=== PATIENT | male | born 1955 | race Caucasian/White ===

== ENCOUNTER 2017-08-08 07:00 | Day surgery (SDC) | payer BC ==
[2017-08-08] MEDS ORDERED: Dextrose 5%-Lactated Ringers 1,000 ML IV SCH (07:30)
[2017-08-08] MEDS ORDERED: Propofol 200 MG/20 ML SDV ONE (07:55)
[2017-08-08] MEDS ORDERED: Midazolam 1 MG/ML 2 ML SDV ONE (07:56)
[2017-08-08] MEDS ORDERED: fentaNYL 100 MCG/2 ML SDV ONE (07:56)
[2017-08-08] MEDS ORDERED: Glycopyrrolate 0.2 MG/ML 2 ML SDV IVPUSH ONE (08:15)
[2017-08-08] MEDS ORDERED: Famotidine 20 MG/2 ML SDV IVPUSH ONE (08:53)
[2017-08-08 09:58] VITALS: BP 118/76
--- NOTE | 2017-08-13 11:59 | OR ---
DATE OF PROCEDURE: 08/08/2017 PREOPERATIVE DIAGNOSIS: Dysphagia referable to cervical esophagus. POSTOPERATIVE DIAGNOSES: 1. Ulcerative gastroesophageal reflux disease. 2. Mild antral gastritis. OPERATIVE PROCEDURES: Esophagogastroduodenoscopy with: 1. Biopsies of antrum for CLOtest. 2. Biopsies of esophagogastric junction for histologic evaluation. ANESTHESIA: IV sedation. INDICATION FOR PROCEDURE: This is a 62-year-old male presenting with history of some recently worsening dysphagia referable to cervical area as well as sense of irritation in that region. Plan is to proceed with upper GI endoscopy with biopsies and/or dilation if indicated. Potential risks of the procedure including bleeding and perforation were discussed, and the patient wishes to proceed. DETAILS OF PROCEDURE: The patient was taken to the operating room and placed in a left lateral decubitus position. IV sedation was administered, after which the upper GI endoscope was passed orally through the length of the esophagus and into the stomach with retroflexion view of the fundus, and thereafter through the pyloric channel and into the junction of the third and fourth portions of the duodenum. Findings included some mild redness of the hypopharynx and laryngeal area. The scope was then passed through the upper esophageal sphincter and esophageal body which were unremarkable. At the EG junction, the patient was noted to have a small hiatal hernia and quite active gastroesophageal reflux disease. There were 2 areas of ulceration, one of which was over 2 cm in length. These were covered with fibrinous exudate and were surrounded by areas of intense redness and friability of the mucosa. There was no plaquing or gross evidence of neoplasia. Within the stomach, retroflexion view confirmed the small hiatal hernia. Within the antrum, there was some mild redness in the pre-pyloric area, but without erosions or ulcers. The pyloric channel and duodenum were unremarkable. At this point, biopsies were obtained from the antrum and sent for CLOtest for H. pylori. Multiple biopsies were then obtained from the esophagogastric junction, focusing on the areas of inflammation and ulceration. Minimal bleeding from the biopsy sites was seen and the procedure then concluded. The patient in the past has been fairly intolerant to proton pump inhibitors, and we will give him Pepcid 40 mg IV in the recovery room and then begin Zantac 30 mg daily. We will see him back in 10 days for a recheck to discuss long-term treatment options. The patient may be a candidate for an antireflux procedure given his otherwise fairly good health and relatively young age. Joe Kelley MD /[id number]
== END 2017-08-08 10:00 | disposition home or self-care (01) ==
LOC: JP.SDS 07:00
PROVIDERS: ATTEND Surgery
DX: K25.9 Gastric ulcer, unspecified as acute or chronic, without hemorrhage or perforation (principal); K44.9 Diaphragmatic hernia without obstruction or gangrene; K21.9 Gastro-esophageal reflux disease without esophagitis
CPT/HCPCS: 43239; 87081; 88305; 88312; J2250; J2704; J3010; J7042; J3490; S0028

== ENCOUNTER 2019-07-23 06:03 | Day surgery (SDC) | payer MEDICARE ==
[2019-07-23] MEDS ORDERED: Dextrose 5%-Lactated Ringers 1,000 ML IV SCH (06:45)
[2019-07-23] MEDS ORDERED: Meropenem 500 MG in Sodium Chloride 0.9% 50 ML IV ONE (06:45)
[2019-07-23] MEDS ORDERED: Propofol 200 MG/20 ML SDV ONE (07:10)
[2019-07-23] MEDS ORDERED: Midazolam 1 MG/ML 2 ML SDV ONE (07:10)
[2019-07-23] MEDS ORDERED: fentaNYL 100 MCG/2 ML SDV ONE (07:10)
[2019-07-23 09:31] VITALS: BP 135/85; PULSE 68
--- NOTE | 2019-08-02 12:29 | OR ---
DATE OF PROCEDURE: 07/23/2019 SURGEON: Joe Kelley MD PREOPERATIVE DIAGNOSIS: History of colon polyps. POSTOPERATIVE DIAGNOSIS: Normal screening colonoscopy with no evident recurrent polyps. PROCEDURE PERFORMED: Screening colonoscopy. ANESTHESIA: IV sedation. INDICATION FOR PROCEDURE: A 64-year-old presenting with history of previous polyp removal from the colon. Plan is to proceed with a flexible colonoscopy with biopsies and/or polypectomy as indicated. Potential risks including bleeding and perforation were discussed, and the patient wishes to proceed. DETAILS OF PROCEDURE: The patient was taken to the operating room, placed in a left lateral decubitus position. IV sedation was administered after which the initial digital rectal exam was performed and was unremarkable. Colonoscope was then passed into the rectum with retroflexion revealing uncomplicated hemorrhoidal columns. The scope was then passed to the level of the cecum. The prep was quite good with only a small amount of liquid stool being present. To that level, no abnormalities were noted, specifically no polyp formation or other signs of neoplasia, and no diverticular disease or colitis were noted. The scope was withdrawn with the above findings reconfirmed, procedure concluded. The patient was taken to the recovery room in satisfactory condition. Given the history of colon polyps, he should have a repeat colonoscopy in 5 years. Joe Kelley MD /[id number]
== END 2019-07-23 09:34 | disposition home or self-care (01) ==
LOC: JP.SDS 06:03
PROVIDERS: ATTEND Surgery
DX: Z12.11 Encounter for screening for malignant neoplasm of colon (principal); K64.9 Unspecified hemorrhoids; K21.9 Gastro-esophageal reflux disease without esophagitis; Z86.010 Personal history of colon polyps
CPT/HCPCS: G0121; J2185; J2250; J2704; J3010; J7042; J7050

== ENCOUNTER 2021-02-09 06:19 | Day surgery (SDC) | payer MEDICARE ==
[2021-02-09] MEDS ORDERED: Sodium Chloride 0.9% 1,000 ML IV SCH (07:00)
[2021-02-09] MEDS ORDERED: Midazolam 1 MG/ML 2 ML SDV ONE (07:06)
[2021-02-09] MEDS ORDERED: Propofol 200 MG/20 ML SDV ONE (07:06)
[2021-02-09] MEDS ORDERED: fentaNYL 100 MCG/2 ML SDV ONE (07:06)
[2021-02-09 08:48] VITALS: BP 136/83; PULSE 71
--- NOTE | 2021-02-09 14:06 | OR ---
DATE OF PROCEDURE: 02/09/2021 SURGEON: Lloyd Chance MD PROCEDURE: Esophagogastroduodenoscopy. FINDINGS: 1. Mild inflammation in the GE junction. 2. No gross etiology for dysphagia. COMPLICATIONS: None. PIT MANAGER: None. ANESTHESIA: MAC. PREOPERATIVE DIAGNOSIS: Dysphagia. POSTOPERATIVE DIAGNOSIS: Dysphagia. RISKS: Risks, benefits, alternatives, and limitations including, but not limited to, infection, bleeding, perforation, false positives and false negatives were explained to the patient who wished to proceed. PROCEDURE IN DETAIL: Patient is placed in left lateral decubitus position. The EGD scope was introduced and advanced atraumatically to second part of the duodenum. No evidence of duodenitis or ulceration. No old or new blood. No masses. No gastritis. The patient had mild inflammation in the GE junction with single tongue of this. This was biopsied along with other quadrants using cold biopsy forceps. The air was removed from the stomach and esophagus. Remainder of esophagus was inspected, without abnormality. The patient tolerated the procedure well. Of note, the patient will be sent for manometry to further delineate the etiology of this dysphagia. Lloyd Chance MD /[id number]
== END 2021-02-09 08:53 | disposition home or self-care (01) ==
LOC: JP.SDS 06:19
PROVIDERS: ATTEND Surgery
DX: K20.90 Esophagitis, unspecified without bleeding (principal); K22.8 Other specified diseases of esophagus
CPT/HCPCS: 43239; 88305; 88312; J2250; J2704; J3010; J7030

== ENCOUNTER 2024-09-11 07:51 | Day surgery (SDC) | payer MEDICARE ==
[2024-09-11] MEDS: Lactated Ringers 1,000 ML IV SCH (08:53)
[2024-09-11] MEDS ORDERED: fentaNYL 50 MCG/ML SDV ONE (09:00)
[2024-09-11] MEDS ORDERED: Propofol 200 MG/20 ML SDV ONE (09:00)
[2024-09-11] MEDS ORDERED: Midazolam 1 MG/ML 2 ML SDV ONE (09:00)
[2024-09-11 11:05] VITALS: BP 124/94; PULSE 90
== END 2024-09-11 11:22 | disposition home or self-care (01) ==
LOC: JP.SDS 07:51
PROVIDERS: ATTEND Surgery
DX: Z12.11 Encounter for screening for malignant neoplasm of colon (principal); D12.3 Benign neoplasm of transverse colon; I10 Essential (primary) hypertension; E78.5 Hyperlipidemia, unspecified; K21.9 Gastro-esophageal reflux disease without esophagitis; E66.9 Obesity, unspecified
CPT/HCPCS: 00813; 43239; 45385; J2250; J2704; J3010; J7120

== ENCOUNTER 2025-04-07 05:54 | Emergency (ER) | payer MEDICARE ==
[2025-04-07 06:12] LABS: BASOPHILS ABSOLUTE AUTO 0.06 K/uL (0.00-0.10); BASOPHILS PERCENT AUTO 0.8 % (0.1-1.3); EOSINOPHILS ABSOLUTE AUTO 0.03 K/uL (0.00-0.40); EOSINOPHILS PERCENT AUTO 0.4 % (0.0-5.4); IMMATURE GRAN ABSOLUTE AUTO 0.03 K/uL (0.00-0.23); IMMATURE GRAN PERCENT AUTO 0.4 % (0.0-0.7); LYMPHOCYTES ABSOLUTE AUTO 1.57 K/uL (0.8-3.3); LYMPHOCYTES PERCENT AUTO 20.1 % (11.4-47.7); MONOCYTES ABSOLUTE AUTO 0.85 K/uL (0.20-0.90); MONOCYTES PERCENT AUTO 10.9 % (3.3-12.6); NEUTROPHILS ABSOLUTE AUTO 5.26 K/uL (1.0-7.6); NEUTROPHILS PERCENT AUTO 67.4 % (40.0-78.1); PLATELET COUNT,PLT 268 K/uL (130-375); RED BLOOD CELL COUNT 5.19 M/uL (4.14-5.76); WHITE BLOOD CELL COUNT,WBC 7.8 K/uL (3.2-11.0)
[2025-04-07] MEDS: Diltiazem 25 MG/5 ML SDV IVPUSH ONE (06:21)
[2025-04-07 06:24] LABS: BLOOD UREA NITROGEN,BUN 12.0 mg/dL (7-18); CARBON DIOXIDE,CO2 22.0 mmol/L (21-32); CHLORIDE,CL 100.0 mmol/L (100-108); CREATININE 1.0 mg/dL (0.8-1.3); EST CRCL DRUG DOSING (CG) 73.29 mL/min; ESTIMATED GFR 80.0 mL/min (>60); GLUCOSE RANDOM 101.0 mg/dL (74-106); POTASSIUM,K 3.8 mmol/L (3.6-5.2); SODIUM,NA 139.0 mmol/L (140-148)
[2025-04-07] MEDS: Diltiazem 100 MG in Sodium Chloride 0.9% 100 ML IV SCH (08:05)
[2025-04-07] MEDS: Ondansetron 4 MG Tab.DIS PO ONE (09:51)
[2025-04-07] MEDS: LORazepam 2 MG/ML SDV IVPUSH ONE (09:51)
[2025-04-07] MEDS: Metoprolol Tartrate 5 MG/5 ML SDV IVPUSH ONE (10:56)
[2025-04-07 11:42] VITALS: BP 147/89; PULSE 82
[2025-04-09 09:22] LABS: B. BURGDORFERI IGG IMMUNOBLOT Negative (Negative); B. BURGDORFERI IGM IMMUNOBLOT Negative (Negative)
== END 2025-04-07 11:44 | disposition other institution (70) ==
LOC: JP.ED 05:54
DX: I48.91 Unspecified atrial fibrillation (principal); A69.20 Lyme disease, unspecified; E78.00 Pure hypercholesterolemia, unspecified; K21.9 Gastro-esophageal reflux disease without esophagitis; Z79.899 Other long term (current) drug therapy
CPT/HCPCS: 36415; 80048; 84484; 85025; 86617; 86618; 93005; 96365; 96366; 96368; 96375; 96376; 99285; A9270; J0696; J2060; J3490; Q0162